=== PATIENT | female | born 1995 | race Caucasian/White ===

== ENCOUNTER 2021-12-10 15:05 | Day surgery (SDC) | payer OTHER ==
[2021-12-10 15:34] VITALS: BMI 30.4
[2021-12-10] MEDS ORDERED: hydrALAZINE 20 MG/ML VIAL SLOW IVP PRN (16:16)
[2021-12-10 16:54] LABS: Fetal Membranes Rupture No Membranes Rupture (No Rupture)
[2021-12-10 17:18] LABS: FFN Internal QC Analyzer PASS (PASS); FFN Internal QC Cassette PASS (PASS); Fetal Fibronectin Negative (Negative)
== END 2021-12-10 18:17 | disposition home or self-care (01) ==
LOC: CSHLD/OP 15:05
PROVIDERS: ATTEND Obstetrics & Gynecology
DX: O98.813 Other maternal infectious and parasitic diseases complicating pregnancy, third trimester (principal); B37.3 Candidiasis of vulva and vagina; O13.3 Gestational [pregnancy-induced] hypertension without significant proteinuria, third trimester; Z3A.29 29 weeks gestation of pregnancy; Z88.5 Allergy status to narcotic agent
CPT/HCPCS: 76815; 82731; 84112; 87480; 87510; 87660

== ENCOUNTER 2022-01-31 08:32 | Outpatient (CLI) | payer BC, OTHER ==
[2022-01-31 19:24] LABS: SARS-CoV-2 PCR by NAA Not Detected (NotDetected)
== END 2022-01-31 08:33 | disposition home or self-care (01) ==
LOC: CSHLAB 08:32
PROVIDERS: ATTEND Obstetrics & Gynecology
DX: Z20.822 Contact with and (suspected) exposure to COVID-19 (principal)
CPT/HCPCS: U0003; U0005

== ENCOUNTER 2022-02-04 19:00 | Inpatient (IN) | payer BC, OTHER ==
[2022-02-04] MEDS ORDERED: Ondansetron PF 4 MG/2 ML Vial IVP PRN (22:02)
[2022-02-04] MEDS ORDERED: Zolpidem Tartrate 5 MG TAB PO PRN (22:02)
[2022-02-04] MEDS ORDERED: HYDROcodone/Acetaminophen 5/325 mg Tablet PO PRN (22:02)
[2022-02-04] MEDS ORDERED: Carboprost 250 MCG/ML AMP IM PRN (22:02)
[2022-02-04] MEDS ORDERED: Promethazine HCl 25 MG/ML VIAL IM PRN (22:02)
[2022-02-04] MEDS ORDERED: Lidocaine 1% (PF) 30 ML VIAL SC PRN (22:02)
[2022-02-04] MEDS ORDERED: Docusate 100 MG CAP PO PRN (22:02)
[2022-02-04] MEDS ORDERED: Butorphanol Tartrate 1 MG/ML VIAL SLOW IVP PRN (22:02)
[2022-02-04] MEDS ORDERED: Acetaminophen 500 MG TAB PO PRN (22:02)
[2022-02-04] MEDS ORDERED: Misoprostol 200 MCG TAB PR PRN (22:02)
[2022-02-04] MEDS ORDERED: Misoprostol 100 MCG TAB PO PRN (22:02)
[2022-02-04] MEDS ORDERED: hydrALAZINE 20 MG/ML VIAL SLOW IVP PRN (22:02)
[2022-02-04] MEDS ORDERED: Diphenoxylate HCl/Atropine Tablet PO PRN ×2 (22:02)
[2022-02-04] MEDS ORDERED: Ibuprofen 800 MG TAB PO PRN (22:02)
[2022-02-04] MEDS ORDERED: NS w/ Oxytocin 30 units 500 ML IV SCH ×2 (22:15)
[2022-02-05 03:30] LABS: Hemoglobin 9.7 g/dL (12.0-15.5); Mean Corpuscular HGB CONC 30.9 g/dL (32.0-36.0); Mean Corpuscular Hemoglobin 22.7 pg (27.0-33.0); Mean Corpuscular Volume 73.5 fl (81.6-98.3); Mean Platelet Volume 10.1 fl (7.4-10.4); Platelet Count 196 10x3/uL (150-450); RBC Distribution Width 15.8 % (11.5-14.5); Red Blood Cell (RBC) Count 4.27 10x6/uL (3.90-5.03); White Blood Cell (WBC) Count 9.8 10x3/uL (3.5-10.5)
[2022-02-05 04:08] LABS: Syphilis Antibody Nonreactive (Nonreactive); Syphilis Antibody Index 0.04 S/CO (<1.00 Non-Reactive)
[2022-02-05 04:10] LABS: Hep B Surf Ag Non-Reactive S/CO (NonReactive)
[2022-02-05 04:19] VITALS: BMI 33.3
[2022-02-05 05:28] LABS: HBSAg Index 0.17 S/CO (0-0.99)
[2022-02-05] MEDS: Lactated Ringer's 1,000 ML IV SCH ×3 (07:00→16:31)
[2022-02-05] MEDS ORDERED: Bupivacaine/Epinephrine 0.25% 30 ML VIAL ONE (08:00)
[2022-02-05] MEDS ORDERED: Fentanyl 2 mcg/Bup 0.1% Cadd 100 ML ONE (09:56)
[2022-02-05] MEDS ORDERED: Hydrocerin (Eucerin) Cream 120 gm Jar TOP PRN (10:31)
[2022-02-05] MEDS ORDERED: Promethazine HCl 25 MG/ML VIAL IM PRN ×2 (10:31→20:06)
[2022-02-05] MEDS ORDERED: Acetaminophen 325 MG TAB PO PRN (10:31)
[2022-02-05] MEDS ORDERED: diphenhydrAMINE 50 MG/ML VIAL IVP PRN (10:31)
[2022-02-05] MEDS ORDERED: ePHEDrine Sulfate 50 MG/10 ML VIAL SLOW IVP PRN (10:31)
[2022-02-05] MEDS ORDERED: Ondansetron PF 4 MG/2 ML Vial IVP PRN ×2 (10:31→20:06)
[2022-02-05] MEDS ORDERED: Lactated Ringer's 500 ML IV PRN (10:31)
[2022-02-05] MEDS ORDERED: Naloxone HCl 0.4 mg/ml Vial IVP PRN ×2 (10:31)
[2022-02-05] MEDS ORDERED: Communication Order-Pharmacy FS SCH (10:45)
[2022-02-05] MEDS ORDERED: Fentanyl 2 mcg/Bupivacaine 0.1% Cassette 100 ML EPIDURAL SCH (10:45)
[2022-02-05] MEDS ORDERED: Bisacodyl 10 MG SUPP PR PRN (20:06)
[2022-02-05] MEDS ORDERED: Zolpidem Tartrate 5 MG TAB PO PRN (20:06)
[2022-02-05] MEDS ORDERED: Benzocaine-Menthol 82.5 ML CAN TOP PRN (20:06)
[2022-02-05] MEDS ORDERED: Lanolin Ointment 7 GM TUBE TOP PRN (20:06)
[2022-02-05] MEDS ORDERED: diphenhydrAMINE 25 MG CAP PO PRN (20:06)
[2022-02-05] MEDS ORDERED: Measles/Mumps/Rubella 10 MCG/0.5 ML VIAL SC ONE (20:06)
[2022-02-05] MEDS ORDERED: NS w/ Oxytocin 30 units 500 ML IV SCH (20:06)
[2022-02-05] MEDS ORDERED: Milk Of Magnesia 30 ML UDCUP PO PRN (20:06)
[2022-02-05] MEDS ORDERED: hydrALAZINE 20 MG/ML VIAL SLOW IVP PRN (20:06)
[2022-02-05] MEDS ORDERED: Misoprostol 200 MCG TAB VAG PRN (20:06)
[2022-02-05] MEDS ORDERED: Boostrix 0.5 ML (Tdap) VIAL IM ONE (20:06)
[2022-02-05] MEDS ORDERED: Varicella virus, LIVE 0.5 ML VIAL SC ONE (20:06)
[2022-02-05] MEDS ORDERED: Preparation H Ointment 28 GM TUBE PR PRN (20:06)
[2022-02-05] MEDS: Ibuprofen 800 MG TAB PO SCH (20:32)
[2022-02-05] MEDS: Docusate 100 MG CAP PO SCH (23:38)
[2022-02-06 04:37] LABS: Hemoglobin 9.4 g/dL (12.0-15.5); Mean Corpuscular HGB CONC 30.4 g/dL (32.0-36.0); Mean Corpuscular Hemoglobin 22.8 pg (27.0-33.0); Mean Platelet Volume 9.9 fl (7.4-10.4); Platelet Count 151 10x3/uL (150-450); Red Blood Cell (RBC) Count 4.12 10x6/uL (3.90-5.03); White Blood Cell (WBC) Count 9.7 10x3/uL (3.5-10.5)
[2022-02-06] MEDS: Ibuprofen 800 MG TAB PO SCH ×2 (05:14→13:17)
[2022-02-06] MEDS: Ferrous Sulfate 325 MG TAB PO SCH ×2 (08:12→17:27)
[2022-02-06] MEDS: Docusate 100 MG CAP PO SCH (08:12)
[2022-02-06] MEDS ORDERED: Prenatal Vitamin 1 TAB PO SCH (09:00)
[2022-02-06 16:38] VITALS: BP 121/74; TEMP 98.1
== END 2022-02-06 18:10 | disposition home or self-care (01) | DRG 807 ==
LOC: CSHLD 22:03 → UNDOADMIN 02-05 02:10 → CSHPP 02-05 19:30
PROVIDERS: ADMIT Obstetrics & Gynecology; ATTEND Obstetrics & Gynecology
PROC: 10E0XZZ Delivery of Products of Conception, External Approach (ICD-10-PCS; principal; 2022-02-05)
PROC: 3E033VJ Introduction of Other Hormone into Peripheral Vein, Percutaneous Approach (ICD-10-PCS; 2022-02-05)
PROC: 10907ZC Drainage of Amniotic Fluid, Therapeutic from Products of Conception, Via Natural or Artificial Opening (ICD-10-PCS; 2022-02-05)
DX: O13.4 Gestational [pregnancy-induced] hypertension without significant proteinuria, complicating childbirth (principal); Z37.0 Single live birth; Z3A.37 37 weeks gestation of pregnancy; Z88.6 Allergy status to analgesic agent
CPT/HCPCS: 36415; 51702; 85027; 86780; 86850; 86900; 86901; 87340; J2405; J2590; J7120